=== PATIENT | male | born 1935 ===

== ENCOUNTER 2016-12-05 08:36 | Outpatient (CLI) | payer MEDICARE ==
--- NOTE | 2016-12-05 11:57 | Cat Scan Report ---
CT head without and with IV contrast: History: Metastatic lung cancer. Axial unenhanced images demonstrates peripheral atrophy and mild symmetric enlargement of the ventricles. There is mild decreased periventricular white matter change. There is no lesion or mass effect. No extra cerebral collection. Following IV contrast the visualized vasculature is unremarkable and there is no abnormal cerebral enhancement. The visualized bones and paranasal sinuses are unremarkable. Impressions: Senescent changes. No evidence of metastatic disease.
== END 2016-12-05 08:37 | disposition home or self-care (01) ==
LOC: SPVIMAG 08:36
PROVIDERS: ATTEND Internal Medicine Hematology & Oncology
DX: C34.92 Malignant neoplasm of unspecified part of left bronchus or lung (principal); I51.7 Cardiomegaly
CPT/HCPCS: 70470